=== PATIENT | female | born 1965 | race Caucasian/White ===

== ENCOUNTER 2020-08-13 11:22 | Day surgery (SDC) | payer OTHER ==
--- NOTE | 2020-08-10 13:18 | NUR ---
COVID SAMPLE COLLECTED AND SENT TO [facility]
[~2020-08-13] VITALS: Ht 160 cm; Wt 64.4 kg
--- NOTE | 2020-08-13 13:43 | NUR ---
08/13/20 1343 Farhana Davis 1340 PATIENT ARRIVES TO PACU AWAKE BUT DROWSY. RESP EVEN AND UNLABORED, ROOM AIR SATS >94%. DENIES PAIN OR NAUSEA.
--- NOTE | 2020-08-14 12:44 | OR ---
[facility] [address], [place] [address] Signed DATE OF OPERATION: 08/13/2020 SURGEON: Thu Rangel MD PREOPERATIVE DIAGNOSIS: Colon screening. POSTOPERATIVE DIAGNOSES: 1. Diminutive polyp of rectosigmoid (excised). 2. Internal and external hemorrhoidal changes. PROCEDURE: Total colonoscopy to cecum with cold morcellation polypectomy x1. ANESTHESIA: Intravenous sedation; fentanyl 150 mcg and Versed 7 mg. INDICATION: This 55-year-old white woman is a patient [facility] Matthews. She is referred for screening colonoscopy. She has never had colonoscopy in the past. She has no family history of colon cancer or complaints of bleeding diarrhea or constipation. She understands the risks of screening colonoscopy including, but not limited to bleeding, infection, perforation, and so on. FINDINGS: The prep was quite excellent. Complete colonoscopy was undertaken to the cecum with intubation of the ileum as well. The only finding of note was a diminutive polyp of the rectosigmoid, which was excised and internal and external hemorrhoidal changes. DESCRIPTION OF PROCEDURE: The patient was brought to the surgical endoscopy suite and placed in lateral decubitus position. She was given intravenous sedation to the point of slurred speech and nystagmus with full cardiopulmonary monitoring. Digital rectal examination showed some external hemorrhoidal changes. The Olympus video colonoscope was passed in the rectum and manipulated throughout the colon. Notable was for a very complete bowel prep. Abdominal wall stabilization allowed for guidance of the scope to the cecum itself with intubation, ultimately of the ileum, which appeared normal. Appendiceal orifice was normal as well. The scope was withdrawn from that point and examination throughout undertaken showing no sign of abnormality into the rectosigmoid. Very diminutive polyp was noted. Narrow band imaging confirmed this to be the case. This was excised with Electronically Signed By: THU RANGEL MD 08/14/20 1244 PATIENT NAME: SHERYL IBARRA OPERATIVE REPORT DATE OF : 61 REPORT #: [id number] PHYSICIAN: THU RANGEL MD PCP: MELQUIADES ENCINAS NP REPORT IS CONFIDENTIAL AND NOT TO BE RELEASED WITHOUT AUTHORIZATION [facility] [address] [place], [place] [address] Signed cold morcellation technique. Further withdrawal of scope allowed for retroflexed view of the rectum, which did confirm hemorrhoidal changes as suspected on digital rectal examination. One area in particular was somewhat inflamed, but not bleeding and was not consistent with fissure proper. The scope was removed the patient was taken to the recovery room in good condition. CONCLUDING DIAGNOSES: Diminutive polyps and internal and external hemorrhoidal changes. PLAN: Recommend repeat colonoscopy in 10 years based on the polyp unless pathology should confirm it to be an adenoma in which case 5 years would be appropriate. Recommend high-fiber diet regarding the hemorrhoidal issue. If her hemorrhoids are problematic, I am happy to see her again and we can manage those further. MD YAZMIN Porter/ABI /[id number] cc: [facility] Copies: ~ Electronically Signed By: THU RANGEL MD 08/14/20 1244 PATIENT NAME: SHERYL IBARRA OPERATIVE REPORT DATE OF : 61 REPORT #: [id number] PHYSICIAN: THU RANGEL MD PCP: MELQUIADES ENCINAS NP REPORT IS CONFIDENTIAL AND NOT TO BE RELEASED WITHOUT AUTHORIZATION
--- NOTE | 2020-08-15 17:07 | PATH ---
[facility] [address] [place], [place] [address] Signed SPECIMEN(S): A RECTOSIGMOID POLYP SPECIMEN SOURCE: A. RECTOSIGMOID POLYP CLINICAL HISTORY: Screening. Postop diagnosis: Polyp x 1; internal hemorrhoidal change MICROSCOPIC DESCRIPTION: Histologic sections of all submitted blocks are examined by light microscopy. These findings, together with the gross examination, support the pathologic diagnosis. FINAL PATHOLOGIC DIAGNOSIS: Colon, rectosigmoid, polyp, polypectomy: - Hyperplastic polyp. - Negative for dysplasia or malignancy. NAL:cml:C2NR GROSS DESCRIPTION: The specimen, labeled "Aundrea Hayes, #1," and designated on the requisition "rectosigmoid polyp," is received in formalin and consists of one calderón soft tissue fragment that measures 0.2 cm in greatest dimension. The specimen is entirely submitted in cassette (A1). FB (under the direct supervision of a pathologist) The Gross Description was prepared using a voice recognition system. The report was reviewed for accuracy; however, sound-alike word errors, addition and/or deletions may occur. If there is any question about this report, please contact Client Services. PERFORMING LABORATORY: The technical component was performed by [facility], [address] [place] [id number] (Power Shovel Operator: Anne Iniguez MD; CLIA# [id number]). [facility] [address] [address] (CLIA# [id number]). Diagnostician: Lana Siddiqi MD Pathologist Electronically Signed 08/15/2020 PATIENT NAME: AUNDREA HAYES PATHOLOGY DATE OF : 61 REPORT #: [id number] PHYSICIAN: [facility] PCP: MELQUIADES ENCINAS NP REPORT IS CONFIDENTIAL AND NOT TO BE RELEASED WITHOUT AUTHORIZATION [address] [address] Signed Copies: ~ PATIENT NAME: AUNDREA HAYES PATHOLOGY DATE OF : 61 REPORT #: [id number] PHYSICIAN: [facility] PCP: MELQUIADES ENCINAS NP REPORT IS CONFIDENTIAL AND NOT TO BE RELEASED WITHOUT AUTHORIZATION
== END 2020-08-13 14:15 | disposition home or self-care (01) ==
LOC: OPS 11:22 → DS 11:24 → OPS 12:00 → DS 14:00 → OPS 14:00
PROVIDERS: ATTEND Surgery
PROC: 0DBN8ZX Excision of Sigmoid Colon, Via Natural or Artificial Opening Endoscopic, Diagnostic (ICD-10-PCS; principal; 2020-08-13 12:00)
DX: Z12.11 Encounter for screening for malignant neoplasm of colon (principal); K63.5 Polyp of colon; K64.8 Other hemorrhoids; K64.4 Residual hemorrhoidal skin tags
CPT/HCPCS: 99153; G0500; J2250; J3010; J7121